=== PATIENT | female | born 1995 | race Caucasian/White ===

== ENCOUNTER → 2025-04-11 13:26 | Outpatient (CLI) | payer OTHER, SELFPAY ==
--- NOTE | 2025-04-11 13:26 | DI.US.S_ITS ---
PROCEDURE: US OB <= 14 WEEKS FETUS INDICATIONS: VIABILITY FOLLOW UP. H/O PRIOR MOLAR . OUTSIDE/PRIOR DATING DATA: Working KEVEN: 11/29/2025 TECHNIQUE: Real-time scanning was performed of the fetus and maternal pelvic organs, with image documentation. Endovaginal scanning was also performed to better visualize the fetus and maternal ovaries. COMPARISON: Outside Facility, US, US OB <= 14 WEEKS FETUS, 03/27/2025, 14:41. FINDINGS: There is an intrauterine gestational sac present measuring 2.7 centimeters, corresponding to 7 weeks 5 days. Additionally, there is a small sac-like lesion more inferior to this, containing heterogeneous debris; this measures 0.6 centimeter, without a discernible yolk sac or pole. Additionally, there is a small subchorionic hemorrhage measuring 1.2 x 1.5 x 0.2 centimeter. Embryo: 0.8 centimeters, corresponding to 6 weeks 6 days Heart rate: 126 beats per minute Maternal organs: Left-sided corpus luteum . IMPRESSION: Single living intrauterine at 6 weeks 6 days, KEVEN of 11/29/2025. Findings are concordant with clinical dating. There is an additional hypoechoic, sac-like lesion more inferior to the intrauterine gestation measuring 0.6 centimeters, containing heterogeneous debris and no discernible pole. Differential for this process includes a small subchorionic hemorrhage or less likely the twin gestation with demise within this sac. Additional subchorionic hemorrhage measuring 1.2 x 1.5 x 0.2 centimeter. We strive to produce accurate, complete, and clear reports of imaging services. To assist us in improving patient care, this report was composed using standard report templates and voice recognition software. Therefore, it may contain abnormal punctuation, insertions and/or omissions. Occasional wrong-word or sound-alike substitutions may occur. Though we review the report and make efforts to correct it, we do recommend that the report be read carefully in proper context to recognize any text inaccuracies. Dictated by: Kameron Ernst M.D. on 04/11/2025 at 16:38 Approved by: Kameron Ernst M.D. on 04/11/2025 at 16:42
== END ==
PROVIDERS: PCP Family Medicine
DX: O46.8X1 Other antepartum hemorrhage, first trimester (principal); O99.891 Other specified diseases and conditions complicating pregnancy; R93.89 Abnormal findings on diagnostic imaging of other specified body structures; Z3A.01 Less than 8 weeks gestation of pregnancy
CPT/HCPCS: 76801; 76817

== ENCOUNTER → 2025-05-01 13:21 | Outpatient (CLI) | payer OTHER, SELFPAY ==
[2025-05-01 20:37] LABS: Urine N gonorrhoeae NOT DETECTED
[2025-05-01 20:38] LABS: Urine Chlamydia NOT DETECTED
== END ==
PROVIDERS: PCP Family Medicine; Visit Provider Obstetrics & Gynecology
DX: Z34.01 Encounter for supervision of normal first pregnancy, first trimester (principal); Z98.84 Bariatric surgery status
CPT/HCPCS: 87491; 87591

== ENCOUNTER → 2025-05-05 09:10 | Outpatient (CLI) | payer OTHER, SELFPAY ==
[2025-05-05 09:47] LABS: Add Manual Diff / Slide Review NO; Hematocrit 35.8 % (36-46); Hemoglobin 12.4 g/dL (12.0-16.0); Lymphocytes Absolute Auto 1200 /uL (1100-4500); Mean Corpuscular HGB Conc 34.6 % (30-36); Mean Corpuscular Hemoglobin 29.8 PG (26-34); Mean Corpuscular Volume 86.2 fL (80-100); Platelet Count 220 X10^3/uL (150-400)
[2025-05-05 09:56] LABS: Hemoglobin A1C% w Est Avg Glu 4.8 % (4.0-6.0)
[2025-05-05 10:15] LABS: Alanine Aminotransferase 15 IU/L (<35); Albumin 4.2 g/dL (3.5-5.0); Albumin Globulin Ratio 1.5 (1.0-2.8); Alkaline Phosphatase 50 U/L (38-126); Blood Urea Nitrogen 13 mg/dL (7-17); Calcium 9.2 mg/dL (8.4-10.2); Carbon Dioxide 20 mmol/L (22-32); Chloride 106 mmol/L (98-107); Estimated Glomerular Filt Rate > 60 mL/min (>60); Globulin 2.8 g/dL (1.7-4.1); Glucose 81 mg/dL (70-99); HEMOLYSIS < 15 (0-50); Potassium 3.7 mmol/L (3.4-5.1); Sodium 137 mmol/L (137-145); Total Protein 7.0 g/dL (6.3-8.2)
[2025-05-05 10:16] LABS: HEMOLYSIS < 15 (0-50); Iron 79 ug/dL (37-170)
[2025-05-05 10:27] LABS: Percent Iron Saturation 19 % (15-50); Total Iron Binding Capacity 423 ug/dL (265-497); Transferrin 372 mg/dL (206-381); Vitamin D 25 Hydroxy (D3) 30.6 ng/mL (30.0-100.0)
[2025-05-05 10:45] LABS: Hepatitis B Surface Antigen NEGATIVE s/c (NEGATIVE)
[2025-05-05 10:46] LABS: Ferritin 6 ng/mL (6-137)
[2025-05-05 10:54] LABS: HIV 1 & 2 Ab/Ag 4th Gen Combo NEGATIVE (NEGATIVE)
[2025-05-05 12:16] LABS: Urine N gonorrhoeae NOT DETECTED
[2025-05-05 12:47] LABS: Urine Chlamydia NOT DETECTED
[2025-05-05 13:05] LABS: Natera Collection Specimen Collected
[2025-05-06 18:04] LABS: Hep C Virus Ab w/Reflex Quant NEGATIVE s/c (NEGATIVE)
== END ==
PROVIDERS: PCP Family Medicine; Referring Provider Obstetrics & Gynecology; Visit Provider Obstetrics & Gynecology
DX: O09.899 Supervision of other high risk pregnancies, unspecified trimester (principal); Z98.84 Bariatric surgery status
CPT/HCPCS: 36415; 80053; 80055; 82306; 82728; 83036; 83540; 83550; 86787; 86803; 86850; 86900; 86901; 87086; 87389; 87491; 87591